=== PATIENT | male | born 1950 | race Hispanic/Latino ===

== ENCOUNTER 2023-05-29 10:32 | Inpatient (IN) | payer MEDICARE ==
[2023-05-26 12:09] LABS: BASOPHILS % 0.5 % (0.0-1.0); EOSINOPHILS # (AUTO) 0.5 (0.0-0.4); EOSINOPHILS % 7.4 % (0.0-6.0); HEMATOCRIT 38.5 % (38.2-49.6); LYMPHOCYTES # (AUTO) 1.4 (1.0-3.2); LYMPHOCYTES % 21.4 % (18.0-39.1); MEAN CORPUSCULAR HEMOGLOBIN 25.7 pg (28-32); MEAN CORPUSCULAR HGB CONC 31.2 g/dL (31-35); MEAN CORPUSCULAR VOLUME 82.4 fL (81-99); MONOCYTES # (AUTO) 0.5 (0.2-0.8); MONOCYTES % 8.6 % (4.4-11.3); NEUTROPHILS # (AUTO) 3.9 (2.1-6.9); NEUTROPHILS % 61.8 % (38.7-80.0); PLATELET COUNT 286 x10e3/uL (140-360); RED BLOOD COUNT 4.67 x10e6/uL (4.3-5.7); RED CELL DISTRIBUTION WIDTH 15.3 % (11.7-14.4); WHITE BLOOD COUNT 6.31 x10e3/uL (4.8-10.8)
[2023-05-26 12:54] LABS: ALBUMIN 3.7 g/dL (3.5-5.0); ALBUMIN/GLOBULIN RATIO 1.2 (0.8-2.0); ANION GAP 12.1 mmol/L (8-16); BILIRUBIN,TOTAL 0.7 mg/dL (0.2-1.2); CALCIUM 8.9 mg/dL (8.4-10.2); CREATININE, SERUM 0.66 mg/dL (0.72-1.25); POTASSIUM 4.1 mmol/L (3.5-5.1); TOTAL PROTEIN 6.8 g/dL (6.5-8.1)
[2023-05-29] VITALS (9 sets, daily range): BP systolic 124–150; BP diastolic 43–72; PULSE 49–61; RESP 12–19; TEMP 96–97.6; O2SAT 98–99
[~2023-05-29] VITALS: Ht 172.7 cm; Wt 72.6 kg
[~2023-05-29 10:32] MED LIST: CAPTOPRIL12.5 MG PO
[2023-05-29] MEDS: CEFAZOLIN SODIUM 2 GM ONE (10:45)
[2023-05-29] MEDS: LACTATED RINGER'S 1,000 ML ONE (10:45)
[2023-05-29] MEDS ORDERED: FENTANYL CITRATE/PF 100MCG/2 ML INJ ONE (13:21)
[2023-05-29] MEDS ORDERED: LIDOCAINE HCL 2% LOCAL INJ 5 ML SDV VIAL INJ ONE (13:45)
[2023-05-29] MEDS ORDERED: SUGAMMADEX SODIUM 200 MG/2 ML VIAL IV ONE (13:45)
[2023-05-29] MEDS ORDERED: EPHEDRINE SULFATE INJ 50 MG/ML VIAL ONE (13:45)
[2023-05-29] MEDS ORDERED: ROCURONIUM BROMIDE 10 MG/ML 5ML VIAL IV ONE (13:45)
[2023-05-29] MEDS ORDERED: SEVOFLURANE INHAL SOLN 250 ML PEN BTL ONE (13:45)
[2023-05-29] MEDS ORDERED: PROPOFOL IV EMULSION 10 MG/ML 20 ML VIAL ONE (13:45)
[2023-05-29] MEDS ORDERED: ONDANSETRON HCL INJ 2MG/ML 2ML 2 MG/ML VIAL ONE (13:45)
[2023-05-29] MEDS ORDERED: ACETAMINOPHEN 1000 MG/100 ML IV ONE (13:45)
[2023-05-29] MEDS ORDERED: KETAMINE 50MG/5ML SYR ONE (13:45)
[2023-05-29] MEDS ORDERED: DEXAMETHASONE SOD PHOS INJ 4 MG/ML SDV ONE (13:45)
[2023-05-29] MEDS ORDERED: DEXMEDETOMIDINE HCL 200 MCG/2 ML VIAL ONE (13:45)
[2023-05-29] MEDS ORDERED: NALOXONE HCL INJ 0.4 MG/ML AMP IV PRN (16:15)
[2023-05-29] MEDS ORDERED: DIPHENHYDRAMINE HCL INJ 50 MG/ML VIAL IM PRN (16:15)
[2023-05-29 16:47] LABS: BASOPHILS % 0.2 % (0.0-1.0); EOSINOPHILS # (AUTO) 0.1 (0.0-0.4); EOSINOPHILS % 0.7 % (0.0-6.0); HEMATOCRIT 33.3 % (38.2-49.6); HEMOGLOBIN 11.2 g/dL (14.0-18.0); LYMPHOCYTES % 6.5 % (18.0-39.1); MEAN CORPUSCULAR HEMOGLOBIN 26.5 pg (28-32); MEAN CORPUSCULAR HGB CONC 33.6 g/dL (31-35); MEAN CORPUSCULAR VOLUME 78.9 fL (81-99); MONOCYTES # (AUTO) 0.3 (0.2-0.8); MONOCYTES % 2.1 % (4.4-11.3); NEUTROPHILS # (AUTO) 13.2 (2.1-6.9); PLATELET COUNT 252 x10e3/uL (140-360); RED BLOOD COUNT 4.22 x10e6/uL (4.3-5.7); RED CELL DISTRIBUTION WIDTH 14.8 % (11.7-14.4); WHITE BLOOD COUNT 14.67 x10e3/uL (4.8-10.8)
[2023-05-29] MEDS: FENTANYL CITRATE/PF 100MCG/2 ML INJ ONE (16:54)
[2023-05-29 17:01] LABS: ANION GAP 16.6 mmol/L (8-16); CALCIUM 8.1 mg/dL (8.4-10.2); CREATININE, SERUM 0.61 mg/dL (0.72-1.25); POTASSIUM 3.6 mmol/L (3.5-5.1)
[2023-05-29] MEDS: SODIUM CHLORIDE 0.9% 250ML IRRIG IR SCH (18:00)
[2023-05-29] MEDS: D5.45%NS/KCL 20MEQ 1,000 ML IV SCH (18:00)
[2023-05-29] MEDS: ACETAMINOPHEN 1000 MG/100 ML IV PRN (18:28)
[2023-05-30] VITALS (24 sets, daily range): BP systolic 76–151; BP diastolic 44–75; PULSE 52–99; RESP 10–21; TEMP 97.8–99.4; O2SAT 56–100
[2023-05-30] MEDS: ONDANSETRON HCL INJ 2MG/ML 2ML 2 MG/ML VIAL IV PRN (01:16)
[2023-05-30] MEDS: MORPHINE SULFATE 1 MG/ML 30ML PCA IV PRN (04:34)
[2023-05-30 06:17] LABS: BASOPHILS % 0.1 % (0.0-1.0); HEMATOCRIT 37.2 % (38.2-49.6); HEMOGLOBIN 12.2 g/dL (14.0-18.0); LYMPHOCYTES # (AUTO) 0.7 (1.0-3.2); LYMPHOCYTES % 6.5 % (18.0-39.1); MEAN CORPUSCULAR HEMOGLOBIN 26.2 pg (28-32); MEAN CORPUSCULAR HGB CONC 32.8 g/dL (31-35); MEAN CORPUSCULAR VOLUME 79.8 fL (81-99); MONOCYTES # (AUTO) 1.1 (0.2-0.8); MONOCYTES % 10.3 % (4.4-11.3); NEUTROPHILS % 82.7 % (38.7-80.0); PLATELET COUNT 247 x10e3/uL (140-360); RED BLOOD COUNT 4.66 x10e6/uL (4.3-5.7); RED CELL DISTRIBUTION WIDTH 14.6 % (11.7-14.4); WHITE BLOOD COUNT 10.83 x10e3/uL (4.8-10.8)
[2023-05-30 06:55] LABS: ANION GAP 15.4 mmol/L (8-16); CALCIUM 8.5 mg/dL (8.4-10.2); CREATININE, SERUM 0.74 mg/dL (0.72-1.25); POTASSIUM 4.4 mmol/L (3.5-5.1)
[2023-05-30] MEDS ORDERED: MORPHINE SULFATE 1 MG/ML 30ML PCA IV PRN (07:45)
[2023-05-30] MEDS ORDERED: DEXTROSE 50% SYRINGE 50 ML IV PRN (09:30)
[2023-05-30] MEDS ORDERED: MAGNESIUM SULFATE 2GM/50ML IV ONE (09:30)
[2023-05-30] MEDS: MAGNESIUM SULFATE 2GM/50ML 50 ML IV ONE (10:02)
[2023-05-30] MEDS: INSULIN LISPRO 100 UNIT/1 ML 3ML VIAL SQ SCH (11:30)
[2023-05-30] MEDS ORDERED: ROPIVACAINE 0.5% 5 MG/ML 30 ML SDV ONE (14:42)
[2023-05-30] MEDS ORDERED: DEXAMETHASONE SOD PHOS 10 MG/1 ML VIAL ONE (14:42)
[2023-05-31] VITALS (19 sets, daily range): BP systolic 96–143; BP diastolic 45–71; PULSE 62–82; RESP 12–23; TEMP 98.1–99; O2SAT 96–99
[2023-05-31 06:33] LABS: BASOPHILS % 0.1 % (0.0-1.0); EOSINOPHILS # (AUTO) 0.1 (0.0-0.4); EOSINOPHILS % 0.6 % (0.0-6.0); HEMATOCRIT 30.8 % (38.2-49.6); HEMOGLOBIN 10.6 g/dL (14.0-18.0); LYMPHOCYTES # (AUTO) 1.2 (1.0-3.2); LYMPHOCYTES % 12.6 % (18.0-39.1); MEAN CORPUSCULAR HEMOGLOBIN 26.6 pg (28-32); MEAN CORPUSCULAR HGB CONC 34.4 g/dL (31-35); MEAN CORPUSCULAR VOLUME 77.4 fL (81-99); MONOCYTES # (AUTO) 1.2 (0.2-0.8); MONOCYTES % 12.5 % (4.4-11.3); NEUTROPHILS # (AUTO) 7.2 (2.1-6.9); NEUTROPHILS % 73.8 % (38.7-80.0); PLATELET COUNT 252 x10e3/uL (140-360); RED BLOOD COUNT 3.98 x10e6/uL (4.3-5.7); RED CELL DISTRIBUTION WIDTH 14.9 % (11.7-14.4); WHITE BLOOD COUNT 9.73 x10e3/uL (4.8-10.8)
[2023-05-31 06:55] LABS: ANION GAP 13.1 mmol/L (8-16); CALCIUM 7.8 mg/dL (8.4-10.2); CREATININE, SERUM 0.72 mg/dL (0.72-1.25); POTASSIUM 4.1 mmol/L (3.5-5.1)
[2023-05-31] MEDS ORDERED: TRAMADOL HCL 50 MG TAB PO PRN (20:15)
[2023-05-31] MEDS: Morphine 2mg Syringe 2 MG/ML SYR IV PRN (20:53)
[2023-06-01] VITALS (12 sets, daily range): BP systolic 85–128; BP diastolic 58–68; PULSE 60–85; RESP 15–20; TEMP 98–99; O2SAT 95–98
[2023-06-01] MEDS ORDERED: ACETAMINOPHEN 1000 MG/100 ML IV SCH
[2023-06-01] MEDS: ACETAMINOPHEN 1000 MG/100 ML IV PRN (05:31)
[2023-06-01 06:44] LABS: BASOPHILS % 0.2 % (0.0-1.0); EOSINOPHILS # (AUTO) 0.2 (0.0-0.4); EOSINOPHILS % 1.7 % (0.0-6.0); HEMATOCRIT 31.9 % (38.2-49.6); HEMOGLOBIN 10.3 g/dL (14.0-18.0); LYMPHOCYTES # (AUTO) 1.2 (1.0-3.2); LYMPHOCYTES % 12.1 % (18.0-39.1); MEAN CORPUSCULAR HEMOGLOBIN 25.6 pg (28-32); MEAN CORPUSCULAR HGB CONC 32.3 g/dL (31-35); MEAN CORPUSCULAR VOLUME 79.4 fL (81-99); MONOCYTES # (AUTO) 1.4 (0.2-0.8); MONOCYTES % 14.7 % (4.4-11.3); NEUTROPHILS # (AUTO) 6.8 (2.1-6.9); PLATELET COUNT 251 x10e3/uL (140-360); RED BLOOD COUNT 4.02 x10e6/uL (4.3-5.7); RED CELL DISTRIBUTION WIDTH 14.7 % (11.7-14.4); WHITE BLOOD COUNT 9.55 x10e3/uL (4.8-10.8)
[2023-06-01 07:17] LABS: ANION GAP 12.4 mmol/L (8-16); CREATININE, SERUM 0.78 mg/dL (0.72-1.25); POTASSIUM 4.4 mmol/L (3.5-5.1)
[2023-06-01] MEDS ORDERED: SENNA-S TABLET PO SCH (17:00)
[2023-06-01] MEDS: SENNA-S TABLET PO SCH (21:33)
[2023-06-02] VITALS (8 sets, daily range): BP systolic 97–125; BP diastolic 51–63; PULSE 60–80; RESP 17–18; TEMP 98.3–100.1; O2SAT 96–99
[2023-06-02 05:20] LABS: BASOPHILS % 0.2 % (0.0-1.0); EOSINOPHILS # (AUTO) 0.4 (0.0-0.4); EOSINOPHILS % 4.3 % (0.0-6.0); HEMATOCRIT 30.3 % (38.2-49.6); HEMOGLOBIN 9.8 g/dL (14.0-18.0); LYMPHOCYTES # (AUTO) 1.2 (1.0-3.2); LYMPHOCYTES % 12.6 % (18.0-39.1); MEAN CORPUSCULAR HEMOGLOBIN 25.9 pg (28-32); MEAN CORPUSCULAR HGB CONC 32.3 g/dL (31-35); MEAN CORPUSCULAR VOLUME 80.2 fL (81-99); MONOCYTES # (AUTO) 1.3 (0.2-0.8); MONOCYTES % 12.8 % (4.4-11.3); NEUTROPHILS # (AUTO) 6.8 (2.1-6.9); NEUTROPHILS % 69.6 % (38.7-80.0); PLATELET COUNT 258 x10e3/uL (140-360); RED BLOOD COUNT 3.78 x10e6/uL (4.3-5.7); RED CELL DISTRIBUTION WIDTH 14.6 % (11.7-14.4); WHITE BLOOD COUNT 9.74 x10e3/uL (4.8-10.8)
[2023-06-02 05:39] LABS: ANION GAP 13.1 mmol/L (8-16); CALCIUM 8.2 mg/dL (8.4-10.2); CREATININE, SERUM 0.8 mg/dL (0.72-1.25); POTASSIUM 4.1 mmol/L (3.5-5.1)
[2023-06-02] MEDS ORDERED: SENOKOT-S TABL1 EACH PO (17:30)
[2023-06-02] MEDS: BISACODYL 10 MG SUPP PR ONE (18:14)
[2023-06-03 00:28] VITALS: BP 100/56; PULSE 69; RESP 17; TEMP 99.1; O2SAT 96
[2023-06-03 04:48] VITALS: BP 118/66; PULSE 69; RESP 18; TEMP 98.6; O2SAT 97
[2023-06-03 07:31] VITALS: BP 118/66; PULSE 69; RESP 18; TEMP 98.6; O2SAT 97
[2023-06-03 07:38] VITALS: BP 110/62; PULSE 61; RESP 16; TEMP 98.2; O2SAT 97
[2023-06-03 11:33] VITALS: BP 118/68; PULSE 64; RESP 16; TEMP 98.3; O2SAT 97
[2023-06-03] MEDS ORDERED: TYLENOL #3 PO (12:18)
== END 2023-06-03 14:33 | disposition home or self-care (01) | DRG 657 ==
LOC: OR 10:32 → PACU V 14:59 → ICU 17:31 → MED/SURG 06-01 13:39
PROVIDERS: ADMIT Internal Medicine; ATTEND Internal Medicine
PROC: 0W9930Z Drainage of Right Pleural Cavity with Drainage Device, Percutaneous Approach (ICD-10-PCS; 2023-05-29)
PROC: 0TT00ZZ Resection of Right Kidney, Open Approach (ICD-10-PCS; principal; 2023-05-29 13:05)
DX: C64.1 Malignant neoplasm of right kidney, except renal pelvis (principal); D62 Acute posthemorrhagic anemia; E11.9 Type 2 diabetes mellitus without complications; I10 Essential (primary) hypertension; E78.5 Hyperlipidemia, unspecified; M19.90 Unspecified osteoarthritis, unspecified site; N35.919 Unspecified urethral stricture, male, unspecified site; Z93.8 Other artificial opening status
CPT/HCPCS: 36415; 71045; 71046; 80048; 80053; 82948; 83735; 85025; 86850; 86900; 86920; 88304; 88307; 88342; 93005; 94799; 99252; J0690; J1100; J2001; J2270; J2405; J2795; J3475